=== PATIENT | female | born 1980 | race Hispanic/Latino ===

== ENCOUNTER 2017-05-02 08:35 | Inpatient (IN) | payer BC ==
[~2017-05-02] VITALS: Ht 180.3 cm; Wt 202.9 kg
[2017-05-02 09:41] LABS: APPEARANCE,URINE Clear (CLEAR); BILIRUBIN,URINE Negative (NEGATIVE); COLOR,URINE Yellow (YELLOW); GLUCOSE, URINE (UA) Negative (NEGATIVE); KETONES,URINE Negative (NEGATIVE); LEUKOCYTE ESTERASE ,URINE Negative (NEGATIVE); NITRATE,URINE Negative (NEGATIVE); OCCULT BLOOD,URINE Small (NEGATIVE); PH,URINE 5.5 (5.0-8.0); PROTEIN,URINE Negative (NEGATIVE); UROBILINOGEN,URINE 0.2 mg/dL (0.2-1.0)
[2017-05-02 09:51] LABS: HCG,QUAL RESULT NEGATIVE (NEGATIVE)
[2017-05-02 10:00] LABS: BACTERIA,URINE Few /HPF (None Seen); SQUAMOUS EPITHELIAL CELL,UR Rare /LPF (0-2); WBC,URINE 0-1 /HPF (0-1)
[2017-05-02] MEDS ORDERED: SODIUM CHLORIDE 0.9% 1000ML 1,000 ML IV ONE (10:03)
[2017-05-02] MEDS ORDERED: KETOROLAC TROMETHAMINE 30MG/ML ONE (10:04)
[2017-05-02] MEDS ORDERED: DiphenhydrAMINE HCL 50 MG/ML VIAL ONE (10:04)
[2017-05-02 10:12] LABS: BASOPHILS % (AUTO) 0.3 % (0.0-5.0); EOSINOPHILS % (AUTO) 0.3 % (0.0-8.0); HEMATOCRIT 38.2 % (36-48); LYMPHOCYTES % (AUTO) 5.7 % (21.0-51.0); MEAN CORPUSCULAR HGB CONC 32.7 g/dL (32.0-36.0); MEAN CORPUSCULAR VOLUME 79.6 fL (79-99); MONOCYTES % (AUTO) 5.4 % (3.0-13.0); NEUTROPHILS % (AUTO) 88.3 % (40.0-77.0); PLATELET COUNT (AUTO) 185 K/uL (130-400); RED CELL DISTRIBUTION WIDTH 15.9 % (11.0-15.5)
[2017-05-02 10:20] LABS: CARBON DIOXIDE 29 mmol/L (21-32); CHLORIDE 101 mmol/L (101-111); GLOMERULAR FILTR. RATE CALC 66 mL/min (>60); GLUCOSE,RANDOM 133 mg/dL (70-105); POTASSIUM 4.2 mmol/L (3.5-5.1); SODIUM SERUM 137 mmol/L (136-145); UREA NITROGEN, BLOOD 10 mg/dL (7-18)
[2017-05-02] MEDS ORDERED: ACETAMINOPHEN EXTRA STRENGTH 500 MG TABLET ONE ×2 (10:33→23:15)
[2017-05-02 10:36] LABS: ALANINE AMINOTRANSFERASE 76 U/L (12-78); ALBUMIN 3.5 g/dL (3.5-5.0); ASPARTATE AMINOTRANSFERASE 44 U/L (10-37); BILIRUBIN,TOTAL 0.5 mg/dL (0.2-1.0); CREATINE KINASE MB < 0.5 ng/mL (0.5-3.6); TOTAL PROTEIN, SERUM 6.8 g/dL (6.0-8.3)
[2017-05-02 10:41] LABS: CREATINE KINASE, TOTAL 706 U/L (21-232)
[2017-05-02] MEDS ORDERED: CEFTRIAXONE SODIUM 1 GM ONE (10:44)
[2017-05-02] MEDS ORDERED: IOPAMIDOL-370 100 ML VIAL IV ONE (10:50)
[2017-05-02] MEDS ORDERED: LEVOFLOXACIN 500 MG/D5W 100 ML 100 ML ONE (11:29)
[2017-05-02] MEDS ORDERED: IBUPROFEN 600 MG TABLET ONE (14:13)
[2017-05-02] MEDS ORDERED: ACETAMINOPHEN 325 MG TAB ONE (17:19)
[2017-05-03] VITALS (7 sets, daily range): BP systolic 114–155; BP diastolic 68–92
[2017-05-03] MEDS: ACETAMINOPHEN 325 MG TAB PO PRN ×2 (04:36→16:54)
[2017-05-03] MEDS ORDERED: VANCOMYCIN PROTOCOL PER PHARMACY IV SCH (14:15)
[2017-05-03] MEDS ORDERED: CEFTRIAXONE 1GM/D5W 50ML 50 ML IV SCH (14:15)
[2017-05-03] MEDS ORDERED: COMPOUND IV REFRIGERATED 1 EACH IVSOLN MISC PRN (16:15)
[2017-05-03] MEDS ORDERED: VANCOMYCIN IV SCH (16:30)
[2017-05-03] MEDS ORDERED: SODIUM CHLORIDE 0.9% IV SCH (16:30)
[2017-05-03] MEDS: CEFTRIAXONE SODIUM 1 GM IVP SCH (16:54)
[2017-05-03] MEDS: OSELTAMIVIR PHOSPHATE 75 MG CAP PO SCH (16:54)
[2017-05-03] MEDS: DOXYCYCLINE HYCLATE 100 MG TABLET PO SCH (16:54)
[2017-05-03] MEDS: VANCOMYCIN 2 GM in SODIUM CHLORIDE 0.9% 500ML 500 ML IV SCH (16:55)
[2017-05-04] MEDS: DOXYCYCLINE HYCLATE 100 MG TABLET PO SCH ×2 (02:29→14:50)
[2017-05-04] MEDS: OSELTAMIVIR PHOSPHATE 75 MG CAP PO SCH ×2 (02:29→14:50)
[2017-05-04] MEDS: VANCOMYCIN 2 GM in SODIUM CHLORIDE 0.9% 500ML 500 ML IV SCH ×3 (02:31→18:37)
[2017-05-04 04:00] VITALS: BP 145/80
[2017-05-04 04:05] LABS: HEMATOCRIT 31.9 % (36-48); MEAN CORPUSCULAR HEMOGLOBIN 26.6 pg (27.0-33.0); MEAN CORPUSCULAR HGB CONC 33.5 g/dL (32.0-36.0); MEAN CORPUSCULAR VOLUME 79.4 fL (79-99); PLATELET COUNT (AUTO) 163 K/uL (130-400); RED BLOOD CELL COUNT(AUTO) 4.02 MIL/uL (4.00-5.50); RED CELL DISTRIBUTION WIDTH 16.3 % (11.0-15.5)
[2017-05-04 04:13] LABS: CREATININE 0.8 mg/dL (0.5-1.5); MAGNESIUM 1.9 mg/dL (1.80-2.40); POTASSIUM 3.5 mmol/L (3.5-5.1)
[2017-05-04 08:00] VITALS: BP 140/71
[2017-05-04 11:00] VITALS: BP_SYST 129; BP_SYST 154; BP_DIAS 59; BP_DIAS 80
[2017-05-04] MEDS: CEFTRIAXONE SODIUM 1 GM IVP SCH (14:50)
[2017-05-04 16:00] VITALS: BP 141/91
[2017-05-04 19:00] VITALS: BP 155/77
[2017-05-04 23:00] VITALS: BP 153/82
[2017-05-05] MEDS: VANCOMYCIN 2 GM in SODIUM CHLORIDE 0.9% 500ML 500 ML IV SCH ×3 (00:30→16:30)
[2017-05-05 03:00] VITALS: BP 162/87
[2017-05-05] MEDS: DOXYCYCLINE HYCLATE 100 MG TABLET PO SCH ×2 (03:07→15:36)
[2017-05-05] MEDS: OSELTAMIVIR PHOSPHATE 75 MG CAP PO SCH ×2 (03:07→15:36)
[2017-05-05 08:00] VITALS: BP 138/109
[2017-05-05 11:00] VITALS: BP 149/94
[2017-05-05 16:00] VITALS: BP 157/96
[2017-05-05] MEDS ORDERED: LIDOCAINE HCL-MPF 1% 2ML VIAL IVP PRN (16:00)
[2017-05-05] MEDS ORDERED: POTASSIUM CHLORIDE 10% ELIXIR 20 MEQ/15 ML UDCUP PO PRN (16:00)
[2017-05-05] MEDS ORDERED: POTASSIUM CHLORIDE 20MEQ/100ML 100 ML IV PRN (16:00)
[2017-05-05] MEDS: CEFTRIAXONE SODIUM 1 GM IVP SCH (17:30)
[2017-05-05 19:35] VITALS: BP 125/70
[2017-05-05 23:20] VITALS: BP 105/40
[2017-05-06] MEDS: VANCOMYCIN 2 GM in SODIUM CHLORIDE 0.9% 500ML 500 ML IV SCH ×3 (00:34→16:36)
[2017-05-06] MEDS: DOXYCYCLINE HYCLATE 100 MG TABLET PO SCH ×2 (02:14→13:49)
[2017-05-06] MEDS: OSELTAMIVIR PHOSPHATE 75 MG CAP PO SCH ×2 (02:14→13:49)
[2017-05-06 03:55] VITALS: BP 110/53
[2017-05-06 04:55] LABS: MEAN CORPUSCULAR HEMOGLOBIN 26.4 pg (27.0-33.0); MEAN CORPUSCULAR HGB CONC 33.4 g/dL (32.0-36.0); PLATELET COUNT (AUTO) 196 K/uL (130-400); RED BLOOD CELL COUNT(AUTO) 3.92 MIL/uL (4.00-5.50); RED CELL DISTRIBUTION WIDTH 16.2 % (11.0-15.5); WHITE BLOOD COUNT (AUTO) 7.4 K/uL (4.8-10.8)
[2017-05-06 05:03] LABS: ALBUMIN 2.5 g/dL (3.5-5.0); BILIRUBIN,TOTAL 0.4 mg/dL (0.2-1.0); CREATININE 0.8 mg/dL (0.5-1.5); MAGNESIUM 1.9 mg/dL (1.80-2.40); POTASSIUM 3.4 mmol/L (3.5-5.1); TOTAL PROTEIN, SERUM 6.4 g/dL (6.0-8.3)
[2017-05-06] MEDS: POTASSIUM CHLORIDE 20 MEQ ERTAB PO PRN ×2 (05:27→08:58)
[2017-05-06 08:00] VITALS: BP 137/84
[2017-05-06 11:00] VITALS: BP 124/64
[2017-05-06] MEDS: CEFTRIAXONE SODIUM 1 GM IVP SCH (13:50)
[2017-05-06 16:00] VITALS: BP 136/63
[2017-05-06 20:00] VITALS: BP 120/56
[2017-05-07] VITALS: BP 134/60
[2017-05-07] MEDS: VANCOMYCIN 2 GM in SODIUM CHLORIDE 0.9% 500ML 500 ML IV SCH ×3 (00:24→16:47)
[2017-05-07] MEDS: OSELTAMIVIR PHOSPHATE 75 MG CAP PO SCH ×2 (02:24→13:44)
[2017-05-07] MEDS: DOXYCYCLINE HYCLATE 100 MG TABLET PO SCH ×2 (02:24→13:44)
[2017-05-07 04:00] VITALS: BP 134/66
[2017-05-07 08:00] VITALS: BP 118/68
[2017-05-07 11:00] VITALS: BP 142/98
[2017-05-07] MEDS ORDERED: FAMOTIDINE 20MG TAB 20 MG TAB ONE (12:10)
[2017-05-07] MEDS: ACETAMINOPHEN 325 MG TAB PO PRN (12:13)
[2017-05-07] MEDS: CEFTRIAXONE SODIUM 1 GM IVP SCH (13:53)
[2017-05-07 16:00] VITALS: BP 125/57
[2017-05-07 20:00] VITALS: BP 134/76
[2017-05-07] MEDS: FAMOTIDINE 20MG TAB 20 MG TAB PO SCH (21:36)
[2017-05-08] VITALS (7 sets, daily range): BP systolic 124–150; BP diastolic 63–110
[2017-05-08] MEDS: VANCOMYCIN 2 GM in SODIUM CHLORIDE 0.9% 500ML 500 ML IV SCH ×3 (00:37→15:05)
[2017-05-08] MEDS: OSELTAMIVIR PHOSPHATE 75 MG CAP PO SCH (02:22)
[2017-05-08] MEDS: DOXYCYCLINE HYCLATE 100 MG TABLET PO SCH ×2 (02:22→14:35)
[2017-05-08 06:15] LABS: CREATININE 0.8 mg/dL (0.5-1.5); MAGNESIUM 2.2 mg/dL (1.80-2.40); POTASSIUM 4.2 mmol/L (3.5-5.1)
[2017-05-08] MEDS: FAMOTIDINE 20MG TAB 20 MG TAB PO SCH ×2 (09:12→21:21)
[2017-05-08 14:18] LABS: ROCKY MT SPOTTED FEVER IGG <1:64 (Neg:<1:64); TYPHUS FEVER AB IGG <1:64 (Neg:<1:64)
[2017-05-08] MEDS: CEFTRIAXONE SODIUM 1 GM IVP SCH (14:35)
[2017-05-09] MEDS: VANCOMYCIN 2 GM in SODIUM CHLORIDE 0.9% 500ML 500 ML IV SCH ×3 (01:34→15:27)
[2017-05-09 03:36] VITALS: BP 127/77
[2017-05-09 08:00] VITALS: BP 136/74
[2017-05-09] MEDS: FAMOTIDINE 20MG TAB 20 MG TAB PO SCH ×2 (09:20→21:05)
[2017-05-09 11:52] VITALS: BP 150/85
[2017-05-09] MEDS: CEFTRIAXONE SODIUM 1 GM IVP SCH (15:27)
[2017-05-09 16:00] VITALS: BP 158/90
[2017-05-09 19:45] VITALS: BP 143/87
[2017-05-09] MEDS: ACETAMINOPHEN 325 MG TAB PO PRN (21:10)
[2017-05-09 23:46] VITALS: BP 136/70
[2017-05-10] MEDS: VANCOMYCIN 2 GM in SODIUM CHLORIDE 0.9% 500ML 500 ML IV SCH ×3 (00:28→16:57)
[2017-05-10 03:54] VITALS: BP 132/78
[2017-05-10 08:00] VITALS: BP 141/84
[2017-05-10] MEDS: FAMOTIDINE 20MG TAB 20 MG TAB PO SCH ×2 (09:09→21:31)
[2017-05-10 11:00] VITALS: BP 137/94
[2017-05-10] MEDS ORDERED: ONDANSETRON HCL MDV 20ML 2 MG/ML VIAL IVP PRN (11:45)
[2017-05-10] MEDS: MORPHINE SULFATE 2 MG/ML 1ML SYG IVP PRN (12:06)
[2017-05-10] MEDS ORDERED: GADOBENATE DIMEGLUMINE 20 ML IV ONE (15:01)
[2017-05-10] MEDS: CEFTRIAXONE SODIUM 1 GM IVP SCH (15:33)
[2017-05-10 16:00] VITALS: BP 141/74
[2017-05-10] MEDS: ACETAMINOPHEN 325 MG TAB PO PRN (17:50)
[2017-05-10 20:00] VITALS: BP 155/67
[2017-05-11] VITALS: BP 159/78
[2017-05-11] MEDS: VANCOMYCIN 2 GM in SODIUM CHLORIDE 0.9% 500ML 500 ML IV SCH ×3 (00:12→17:35)
[2017-05-11] MEDS: MORPHINE SULFATE 2 MG/ML 1ML SYG IVP PRN (00:13)
[2017-05-11 04:00] VITALS: BP 123/54
[2017-05-11 04:20] LABS: HEMATOCRIT 32.4 % (36-48); MEAN CORPUSCULAR HEMOGLOBIN 26.5 pg (27.0-33.0); MEAN CORPUSCULAR HGB CONC 33.6 g/dL (32.0-36.0); MEAN CORPUSCULAR VOLUME 79.1 fL (79-99); PLATELET COUNT (AUTO) 265 K/uL (130-400); RED CELL DISTRIBUTION WIDTH 15.5 % (11.0-15.5); WHITE BLOOD COUNT (AUTO) 5.1 K/uL (4.8-10.8)
[2017-05-11 04:26] LABS: ALBUMIN 2.7 g/dL (3.5-5.0); BILIRUBIN,TOTAL 0.4 mg/dL (0.2-1.0); CREATININE 0.9 mg/dL (0.5-1.5); MAGNESIUM 2.1 mg/dL (1.80-2.40); POTASSIUM 3.7 mmol/L (3.5-5.1); TOTAL PROTEIN, SERUM 7.2 g/dL (6.0-8.3)
[2017-05-11 08:00] VITALS: BP 136/73
[2017-05-11] MEDS: ACETAMINOPHEN 325 MG TAB PO PRN (08:57)
[2017-05-11] MEDS: FAMOTIDINE 20MG TAB 20 MG TAB PO SCH ×2 (08:57→20:34)
[2017-05-11 11:00] VITALS: BP 133/81
[2017-05-11] MEDS ORDERED: TRAMADOL HCL 50 MG TABLET PO PRN (13:45)
[2017-05-11] MEDS: CEFTRIAXONE SODIUM 1 GM IVP SCH (14:42)
[2017-05-11 16:00] VITALS: BP 157/73
[2017-05-11 19:00] VITALS: BP 147/79
[2017-05-12] VITALS (8 sets, daily range): BP systolic 119–163; BP diastolic 66–91
[2017-05-12] MEDS: VANCOMYCIN 2 GM in SODIUM CHLORIDE 0.9% 500ML 500 ML IV SCH ×3 (03:05→20:56)
[2017-05-12] MEDS: FAMOTIDINE 20MG TAB 20 MG TAB PO SCH ×2 (10:28→20:54)
[2017-05-12] MEDS ORDERED: DiphenhydrAMINE HCL 50 MG/ML VIAL IM PRN (11:15)
[2017-05-12] MEDS ORDERED: METHYLPREDNISOLONE SOD SUCC 40MG/ML 1ML IVP SCH (16:00)
[2017-05-12] MEDS ORDERED: [UNRECOGNIZED DRUG - OTHER] PO SCH (16:00)
[2017-05-12] MEDS ORDERED: LORATADINE/PSEUDOEPHED 5/120 MG 1 EACH TAB.SR.12H PO SCH (16:05)
[2017-05-12] MEDS ORDERED: DiphenhydrAMINE HCL 50 MG/ML VIAL IV PRN (17:15)
[2017-05-12] MEDS: DiphenhydrAMINE HCL 50 MG/ML VIAL IV PRN (18:46)
[2017-05-12] MEDS ORDERED: DIPHENHYDRAMINE HCL 25 MG CAPSULE PO PRN (23:15)
[2017-05-12] MEDS ORDERED: DIPHENHYDRAMINE HCL 25 MG CAPSULE ONE (23:40)
[2017-05-13 03:00] VITALS: BP 120/78
[2017-05-13 08:12] VITALS: BP 147/79
[2017-05-13] MEDS: FAMOTIDINE 20MG TAB 20 MG TAB PO SCH ×2 (09:28→20:18)
[2017-05-13] MEDS: CEPHALEXIN 500 MG CAPSULE PO SCH ×2 (09:47→20:18)
[2017-05-13 12:00] VITALS: BP 163/71
[2017-05-13 16:00] VITALS: BP 155/87
[2017-05-13 19:00] VITALS: BP 133/61
[2017-05-13] MEDS: DiphenhydrAMINE HCL 50 MG/ML VIAL IV PRN (20:19)
[2017-05-13 23:00] VITALS: BP 131/72
[2017-05-14 03:00] VITALS: BP 117/54
[2017-05-14 05:03] LABS: HEMATOCRIT 35.4 % (36-48); MEAN CORPUSCULAR HGB CONC 32.9 g/dL (32.0-36.0); MEAN CORPUSCULAR VOLUME 78.9 fL (79-99); PLATELET COUNT (AUTO) 189 K/uL (130-400); RED BLOOD CELL COUNT(AUTO) 4.48 MIL/uL (4.00-5.50); RED CELL DISTRIBUTION WIDTH 15.5 % (11.0-15.5)
[2017-05-14 05:28] LABS: ALBUMIN 2.7 g/dL (3.5-5.0); BILIRUBIN,TOTAL 0.2 mg/dL (0.2-1.0); CREATININE 0.9 mg/dL (0.5-1.5); MAGNESIUM 2.1 mg/dL (1.80-2.40); POTASSIUM 3.8 mmol/L (3.5-5.1)
[2017-05-14 08:00] VITALS: BP 128/88
[2017-05-14] MEDS: CEPHALEXIN 500 MG CAPSULE PO SCH ×2 (08:31→20:02)
[2017-05-14] MEDS: FAMOTIDINE 20MG TAB 20 MG TAB PO SCH ×2 (08:31→20:02)
[2017-05-14 12:00] VITALS: BP 138/61
[2017-05-14 16:00] VITALS: BP 161/83
[2017-05-14 19:00] VITALS: BP 142/90
[2017-05-14 23:00] VITALS: BP 144/86
[2017-05-15 03:00] VITALS: BP 123/66
[2017-05-15] MEDS: FAMOTIDINE 20MG TAB 20 MG TAB PO SCH (09:36)
[2017-05-15] MEDS: CEPHALEXIN 500 MG CAPSULE PO SCH (09:36)
== END 2017-05-15 10:40 | disposition home or self-care (01) | DRG 871 ==
LOC: EDH 08:35 → EDHIP 14:25 → OBSVTOIN 14:25 → 3BH 23:10
PROVIDERS: ADMIT Internal Medicine; ATTEND Internal Medicine
DX: A41.9 Sepsis, unspecified organism (principal); J18.9 Pneumonia, unspecified organism; M62.82 Rhabdomyolysis; E66.01 Morbid (severe) obesity due to excess calories; L97.329 Non-pressure chronic ulcer of left ankle with unspecified severity; L03.116 Cellulitis of left lower limb; Z68.44 Body mass index [BMI] 60.0-69.9, adult; R53.81 Other malaise; I73.9 Peripheral vascular disease, unspecified; L27.0 Generalized skin eruption due to drugs and medicaments taken internally; M06.9 Rheumatoid arthritis, unspecified; M77.30 Calcaneal spur, unspecified foot; Z88.0 Allergy status to penicillin; Z88.8 Allergy status to other drugs, medicaments and biological substances
CPT/HCPCS: 36415; 71045; 71275; 73610; 73630; 73718; 73723; 80048; 80053; 80202; 81001; 81025; 82550; 82553; 83605; 83735; 83880; 84484; 84550; 85025; 85027; 86757; 87040; 87088; 87804; 87880; 93005; 93306; 93925; 93970; A4218; A9577; J0696; J1200; J1885; J1956; J2920; J3370; J7030; J7040; Q0163; Q9967

== ENCOUNTER 2017-06-14 12:52 | Emergency (ER) | payer BC ==
[2017-06-14 13:55] LABS: BASOPHILS % (AUTO) 0.4 % (0.0-5.0); EOSINOPHILS % (AUTO) 3.9 % (0.0-8.0); HEMATOCRIT 31.3 % (36-48); LYMPHOCYTES % (AUTO) 30.8 % (21.0-51.0); MEAN CORPUSCULAR HEMOGLOBIN 26.6 pg (27.0-33.0); MEAN CORPUSCULAR HGB CONC 33.6 g/dL (32.0-36.0); MEAN CORPUSCULAR VOLUME 79.1 fL (79-99); MONOCYTES % (AUTO) 6.1 % (3.0-13.0); NEUTROPHILS % (AUTO) 58.8 % (40.0-77.0); PLATELET COUNT (AUTO) 231 K/uL (130-400); RED BLOOD CELL COUNT(AUTO) 3.96 MIL/uL (4.00-5.50); RED CELL DISTRIBUTION WIDTH 16.2 % (11.0-15.5); WHITE BLOOD COUNT (AUTO) 6.6 K/uL (4.8-10.8)
[2017-06-14] MEDS ORDERED: ONDANSETRON HCL MDV 20ML 2 MG/ML VIAL ONE (13:59)
[2017-06-14] MEDS ORDERED: MORPHINE SULFATE 4 MG/1ML SYG ONE (14:00)
[2017-06-14 14:13] LABS: CREATININE 1.1 mg/dL (0.5-1.5)
[2017-06-14 14:15] LABS: APPEARANCE,URINE CLOUDY (CLEAR); BILIRUBIN,URINE NEGATIVE (NEGATIVE); COLOR,URINE RED (YELLOW); GLUCOSE, URINE (UA) NEGATIVE (NEGATIVE); KETONES,URINE NEGATIVE (NEGATIVE); LEUKOCYTE ESTERASE ,URINE TRACE (NEGATIVE); NITRATE,URINE NEGATIVE (NEGATIVE); OCCULT BLOOD,URINE LARGE (NEGATIVE); PROTEIN,URINE 100 (NEGATIVE); UROBILINOGEN,URINE 0.2 mg/dL (0.2-1.0)
[2017-06-14 14:19] LABS: ALBUMIN 3.2 g/dL (3.5-5.0); BILIRUBIN,TOTAL 0.3 mg/dL (0.2-1.0); INR 0.95 (0.85-1.15); PARTIAL THROMBOPLASTIN TIME 25.7 SEC (26.3-35.5); TOTAL PROTEIN, SERUM 6.9 g/dL (6.0-8.3)
[2017-06-14 14:30] LABS: BACTERIA,URINE Rare /HPF (None Seen); RBC,URINE TNTC /HPF (0-1); SQUAMOUS EPITHELIAL CELL,UR Rare /HPF (0-2); WBC,URINE 0-1 /HPF (0-1)
[2017-06-14] MEDS ORDERED: KETOROLAC TROMETHAMINE 30MG/ML ONE (16:40)
== END 2017-06-14 16:52 | disposition home or self-care (01) ==
LOC: EDH 12:52
DX: N93.9 Abnormal uterine and vaginal bleeding, unspecified (principal); N83.209 Unspecified ovarian cyst, unspecified side; R79.1 Abnormal coagulation profile; Z88.1 Allergy status to other antibiotic agents
CPT/HCPCS: 36415; 76856; 80053; 81001; 84703; 85025; 85610; 85730; 86850; 86900; 86901; 96374; 96375; 99285; J1885; J2270

== ENCOUNTER 2017-06-20 05:30 | Day surgery (SDC) | payer BC ==
[2017-06-19 15:46] VITALS: BP 180/77
[2017-06-19 15:55] LABS: BASOPHILS % (AUTO) 0.5 % (0.0-5.0); EOSINOPHILS % (AUTO) 3.7 % (0.0-8.0); MEAN CORPUSCULAR HEMOGLOBIN 26.1 pg (27.0-33.0); MEAN CORPUSCULAR HGB CONC 32.9 g/dL (32.0-36.0); MEAN CORPUSCULAR VOLUME 79.3 fL (79-99); MONOCYTES % (AUTO) 6.5 % (3.0-13.0); NEUTROPHILS % (AUTO) 61.3 % (40.0-77.0); PLATELET COUNT (AUTO) 250 K/uL (130-400); RED BLOOD CELL COUNT(AUTO) 3.78 MIL/uL (4.00-5.50); RED CELL DISTRIBUTION WIDTH 15.9 % (11.0-15.5); WHITE BLOOD COUNT (AUTO) 7.1 K/uL (4.8-10.8)
[2017-06-20] VITALS (14 sets, daily range): BP systolic 98–158; BP diastolic 50–73
[~2017-06-20] VITALS: Ht 176.5 cm; Wt 197.5 kg
[2017-06-20] MEDS ORDERED: LACTATED RINGERS 1000ML 1,000 ML IV ONE (06:24)
[2017-06-20] MEDS ORDERED: DEXAMETHASONE SOD PHOSPHATE 10MG/ML 1ML VIAL ONE (06:29)
[2017-06-20] MEDS ORDERED: ONDANSETRON HCL 4 MG/2 ML VIAL ONE (06:29)
[2017-06-20] MEDS ORDERED: GLYCOPYRROLATE 0.2 MG/ML 5 ML VIAL ONE (06:29)
[2017-06-20] MEDS ORDERED: LIDOCAINE PF 2% 5ML ABBOJECT ONE (06:29)
[2017-06-20] MEDS ORDERED: FENTANYL CITRATE PF 50 MCG/1 ML 2ML VIAL ONE ×2 (06:30→06:48)
[2017-06-20] MEDS ORDERED: PROPOFOL 10 MG/ML 20ML VIAL IV ONE ×2 (06:30→06:49)
[2017-06-20] MEDS ORDERED: MIDAZOLAM HCL 1 MG/ML 2ML VIAL ONE (06:30)
[2017-06-20] MEDS ORDERED: LACTATED RINGERS 1000ML 1,000 ML IV SCH (07:15)
[2017-06-20] MEDS ORDERED: KETOROLAC TROMETHAMINE 30MG/ML ONE (07:33)
[2017-06-20] MEDS ORDERED: MEPERIDINE-PF 25 MG/ML SYG ONE (07:44)
== END 2017-06-20 09:20 | disposition home or self-care (01) ==
LOC: DAH 05:30
PROVIDERS: ATTEND Obstetrics & Gynecology
DX: N92.1 Excessive and frequent menstruation with irregular cycle (principal); D64.9 Anemia, unspecified; M06.9 Rheumatoid arthritis, unspecified; E66.01 Morbid (severe) obesity due to excess calories; Z82.49 Family history of ischemic heart disease and other diseases of the circulatory system; M19.90 Unspecified osteoarthritis, unspecified site; Z83.3 Family history of diabetes mellitus; Z82.61 Family history of arthritis; Z88.0 Allergy status to penicillin; Z88.8 Allergy status to other drugs, medicaments and biological substances; Z68.44 Body mass index [BMI] 60.0-69.9, adult
CPT/HCPCS: 36415; 58120; 84703; 85025; 86850; 86900; 86901; 88305; A4351; A4510; A4600; J1100; J1885; J2001; J2175; J2250; J2405; J2704 ×2; J3010 ×2; J3490; J7120

== ENCOUNTER 2017-10-30 09:20 | Emergency (ER) | payer BC | END 2017-10-30 14:54 | disposition home or self-care (01) | LOC: EDH 09:20 | DX: C54.1 Malignant neoplasm of endometrium (principal); N93.9 Abnormal uterine and vaginal bleeding, unspecified; R30.0 Dysuria; R11.0 Nausea; Z88.1 Allergy status to other antibiotic agents | CPT/HCPCS: 76857 ==

== ENCOUNTER → 2021-07-01 | Outpatient (CLI) | payer BC, OTHER ==
[~2021-07-01] MED LIST: GADOTERATE MEGLUMINE 10 MMOL/20 ML VIAL IV ONE
== END | disposition home or self-care (01) ==
LOC: RAH 08:02
PROVIDERS: ATTEND Internal Medicine
DX: C54.1 Malignant neoplasm of endometrium (principal)
CPT/HCPCS: 72197; A9575

== ENCOUNTER 2023-06-19 18:17 | Emergency (ER) | payer BC ==
[~2023-06-19] VITALS: Ht 177.8 cm; Wt 172.4 kg
[2023-06-19 18:37] VITALS: BP 147/83; PULSE 81; RESP 20
[2023-06-19] MEDS ORDERED: M-SA237L TP (20:02)
[2023-06-19] MEDS ORDERED: NAPR-1180 PO (20:02)
== END 2023-06-19 20:37 | disposition home or self-care (01) ==
LOC: EDH 18:17
DX: M25.761 Osteophyte, right knee (principal); M25.561 Pain in right knee; E11.9 Type 2 diabetes mellitus without complications; I10 Essential (primary) hypertension; Z88.0 Allergy status to penicillin; Z88.1 Allergy status to other antibiotic agents; Z90.710 Acquired absence of both cervix and uterus
CPT/HCPCS: 73562